=== PATIENT | female | born 1940 | race African-American/Black ===

== ENCOUNTER 2018-01-09 12:45 | Inpatient (IN) ==
[2018-01-09 14:01] LABS: Basophils % 0.8 % (0.0-0.8); Eosinophils % 0.6 % (0.00-10.9); Hematocrit 29.5 VOL% (35.7-47.0); Hemoglobin 8.9 GM/DL (12.0-16.0); Immature Granulocytes % 0.6 %; Immature Granulocytes Absolute 0.03 #; Lymphocytes # 0.9 10*3/uL (1.4-4.0); Lymphocytes % 17.1 % (21.3-54.2); Mean Corpuscular HGB Conc 30.2 GM/DL (32-36); Mean Corpuscular Hemoglobin 26 PG (27-34); Mean Corpuscular Volume 87.5 FL (87-102); Mean Platelet Volume 8.7 FL (9.6-12.0); Monocytes # 0.6 10*3/uL (0.11-0.8); Monocytes % 11.3 % (1.7-12.7); Neutrophils # 3.6 10*3/uL (1.4-7.4); Neutrophils % 69.6 % (38.7-73.9); Platelet Count 329 T/CUMM (130-400); Red Blood Count 3.37 MC/CUMM (3.8-5.5); Red Cell Distribution Width 17.6 % (9.3-17.3); White Blood Count 5.2 T/CUMM (4-12)
[2018-01-09 14:11] LABS: INR 1.2; PT Patient Result 12.2 SECS
[2018-01-09 14:21] LABS: Albumin 2.9 G/DL (3.4-5.0); Calcium 8.6 MG/DL (8.5-10.1); Osmolality,Calculated 279.4 MOS/KG (273-304); Potassium 3.3 MMOL/L (3.5-5.1); Total Protein 8.4 G/DL (6.4-8.3)
[2018-01-09 14:22] LABS: Troponin I Only 0.166 NG/ML (0.00-0.045)
[2018-01-09 14:47] LABS: Apearance,Urine CLEAR (Clear); Bacteria,Urine Occasional /HPF (Few); Bilirubin,Urine Negative (Negative); Blood, Urine Negative (Negative); Glucose,Urine (UA) Negative (Negative); Ketones,Urine Negative (Negative); Mucus,Urine Occasional /LPF (Occasional); Nitrite,Urine Negative (Negative); Protein,Urine Negative; Urine Color Straw (Yellow); Urine Specific Gravity 1.005 (1.001-1.035); Urine Urobilinogen < 2.0 EU/DL (0.2-1.0); WBC,Urine <1 /HPF (0-6)
[2018-01-09] MEDS ORDERED: ACETAMINOPHEN 325 MG TABLET PO PRN (16:02)
[2018-01-09] MEDS ORDERED: ONDANSETRON 4 MG/2 ML VIAL IV PRN (16:02)
[2018-01-09] MEDS ORDERED: ENOXAPARIN 40 MG/0.4 ML SYRINGE ONE (17:18)
[2018-01-09] MEDS: ENOXAPARIN 40 MG/0.4 ML SYRINGE SUBCUT SCH (17:21)
[2018-01-09] MEDS: SODIUM CHLORIDE 0.9% 1,000 ML IV SCH (18:35)
[2018-01-09] MEDS: ATORVASTATIN 40 MG TABLET PO SCH (21:10)
[2018-01-10 05:27] LABS: Basophils % 0.4 % (0.0-0.8); Eosinophils % 0.2 % (0.00-10.9); Hematocrit 27.1 VOL% (35.7-47.0); Hemoglobin 8.1 GM/DL (12.0-16.0); Immature Granulocytes % 0.4 %; Immature Granulocytes Absolute 0.04 #; Lymphocytes # 0.8 10*3/uL (1.4-4.0); Mean Corpuscular HGB Conc 29.9 GM/DL (32-36); Mean Corpuscular Hemoglobin 26 PG (27-34); Mean Corpuscular Volume 87.7 FL (87-102); Monocytes # 0.9 10*3/uL (0.11-0.8); Monocytes % 10.2 % (1.7-12.7); Neutrophils # 7.2 10*3/uL (1.4-7.4); Neutrophils % 79.8 % (38.7-73.9); Platelet Count 296 T/CUMM (130-400); Red Blood Count 3.09 MC/CUMM (3.8-5.5); Red Cell Distribution Width 17.7 % (9.3-17.3)
[2018-01-10 06:04] LABS: Albumin 2.5 G/DL (3.4-5.0); Total Protein 6.6 G/DL (6.4-8.3)
[2018-01-10 06:05] LABS: Osmolality,Calculated 284.8 MOS/KG (273-304); Potassium 3.2 MMOL/L (3.5-5.1); Thyroid Stimulating Hormone 2.75 uIU/ml (0.358-3.74)
[2018-01-10] MEDS ORDERED: PANTOPRAZOLE 40 MG TABLET PO SCH (09:00)
[2018-01-10] MEDS: amLODIPine 10 MG TABLET PO SCH (09:01)
[2018-01-10] MEDS: PANTOPRAZOLE 40 MG TABLET PO SCH (09:02)
[2018-01-10] MEDS: POTASSIUM CHLORIDE 20 MEQ TABLET PO PRN ×4 (10:30→20:15)
[2018-01-10] MEDS: ENOXAPARIN 40 MG/0.4 ML SYRINGE SUBCUT SCH (16:37)
[2018-01-10] MEDS: SODIUM CHLORIDE 0.9% 1,000 ML IV SCH (16:38)
[2018-01-10] MEDS: ATORVASTATIN 40 MG TABLET PO SCH (20:15)
[2018-01-11] MEDS: amLODIPine 10 MG TABLET PO SCH (09:11)
[2018-01-11] MEDS: PANTOPRAZOLE 40 MG TABLET PO SCH (09:11)
[2018-01-11] MEDS: SODIUM CHLORIDE 0.9% 1,000 ML IV SCH (09:12)
[2018-01-11] MEDS ORDERED: POTASSIUM CHLORIDE 20 MEQ TABLET PO ONE (09:19)
[2018-01-11] MEDS: ASPIRIN EC 81 MG TABLET PO SCH (09:44)
[2018-01-11] MEDS: ENOXAPARIN 40 MG/0.4 ML SYRINGE SUBCUT SCH (17:07)
[2018-01-11 17:16] LABS: Calcium 8.1 MG/DL (8.5-10.1); Osmolality,Calculated 281.3 MOS/KG (273-304); Potassium 4.8 MMOL/L (3.5-5.1)
[2018-01-11] MEDS: ATORVASTATIN 40 MG TABLET PO SCH (20:37)
[2018-01-12 04:43] LABS: Basophils # 0.1 10*3/uL (0.0-0.2); Basophils % 0.8 % (0.0-0.8); Eosinophils % 0.1 % (0.00-10.9); Hematocrit 25.7 VOL% (35.7-47.0); Hemoglobin 7.9 GM/DL (12.0-16.0); Immature Granulocytes % 0.4 %; Immature Granulocytes Absolute 0.03 #; Lymphocytes # 1.1 10*3/uL (1.4-4.0); Lymphocytes % 14.8 % (21.3-54.2); Mean Corpuscular HGB Conc 30.7 GM/DL (32-36); Mean Corpuscular Hemoglobin 27 PG (27-34); Mean Corpuscular Volume 87.1 FL (87-102); Monocytes # 0.7 10*3/uL (0.11-0.8); Monocytes % 9.5 % (1.7-12.7); Neutrophils # 5.8 10*3/uL (1.4-7.4); Neutrophils % 74.4 % (38.7-73.9); Platelet Count 262 T/CUMM (130-400); Red Blood Count 2.95 MC/CUMM (3.8-5.5); Red Cell Distribution Width 17.8 % (9.3-17.3); White Blood Count 7.7 T/CUMM (4-12)
[2018-01-12 04:52] LABS: INR 1.2; PT Patient Result 12.2 SECS
[2018-01-12] MEDS ORDERED: ceFAZolin 1,000 MG in SYRINGE 1 EACH IV ONE (06:30)
[2018-01-12] MEDS ORDERED: ceFAZolin 1,000 MG VIAL IRRIG ONE (06:30)
[2018-01-12] MEDS: SODIUM CHLORIDE 0.9% 1,000 ML IV SCH (08:50)
[2018-01-12] MEDS: amLODIPine 10 MG TABLET PO SCH (08:51)
[2018-01-12] MEDS: PANTOPRAZOLE 40 MG TABLET PO SCH (08:51)
[2018-01-12] MEDS: ASPIRIN EC 81 MG TABLET PO SCH (08:52)
[2018-01-12] MEDS ORDERED: HYDROmorphone 2 MG/1 ML VIAL ONE (11:57)
[2018-01-12] MEDS ORDERED: LIDOCAINE 1% 20 ML VIAL ONE (11:58)
[2018-01-12] MEDS ORDERED: MIDAZOLAM 2 MG/2 ML VIAL ONE (11:58)
[2018-01-12] MEDS ORDERED: TISSUE ADHESIVE 1 EACH APPLICATOR TOP ONE (12:45)
[2018-01-12] MEDS: ENOXAPARIN 40 MG/0.4 ML SYRINGE SUBCUT SCH (15:36)
[2018-01-12] MEDS: ATORVASTATIN 40 MG TABLET PO SCH (20:24)
[2018-01-13 05:08] LABS: Basophils # 0.1 10*3/uL (0.0-0.2); Basophils % 0.8 % (0.0-0.8); Eosinophils # 0.1 10*3/uL (0.0-0.87); Eosinophils % 0.9 % (0.00-10.9); Immature Granulocytes % 0.5 %; Immature Granulocytes Absolute 0.03 #; Lymphocytes # 0.9 10*3/uL (1.4-4.0); Lymphocytes % 14.2 % (21.3-54.2); Mean Corpuscular HGB Conc 30.8 GM/DL (32-36); Mean Corpuscular Hemoglobin 27 PG (27-34); Mean Corpuscular Volume 87.8 FL (87-102); Mean Platelet Volume 9.7 FL (9.6-12.0); Monocytes # 0.7 10*3/uL (0.11-0.8); Monocytes % 10.3 % (1.7-12.7); Neutrophils # 4.7 10*3/uL (1.4-7.4); Neutrophils % 73.3 % (38.7-73.9); Platelet Count 253 T/CUMM (130-400); Red Blood Count 2.96 MC/CUMM (3.8-5.5); Red Cell Distribution Width 17.6 % (9.3-17.3); White Blood Count 6.4 T/CUMM (4-12)
[2018-01-13 05:27] LABS: Potassium 4.3 MMOL/L (3.5-5.1)
[2018-01-13 05:44] LABS: ABG HCO3 21.8 MMOL/L (20-26); ABG Oxygen Saturation 92.2 % (95-100); ABG PCO2 36.3 MM HG (35-48); ABG PH 7.383 (7.35-7.45); ABG PO2 68.3 MM HG (80-95); Allen Test Positive
[2018-01-13] MEDS: ASPIRIN EC 81 MG TABLET PO SCH (08:53)
[2018-01-13] MEDS: PANTOPRAZOLE 40 MG TABLET PO SCH (08:53)
[2018-01-13] MEDS: amLODIPine 10 MG TABLET PO SCH (08:53)
[2018-01-13] MEDS: ENOXAPARIN 40 MG/0.4 ML SYRINGE SUBCUT SCH (18:16)
[2018-01-13] MEDS: SODIUM CHLORIDE 0.9% 1,000 ML IV SCH ×2 (19:38→21:23)
[2018-01-13] MEDS: ATORVASTATIN 40 MG TABLET PO SCH (21:07)
[2018-01-14] MEDS: SODIUM CHLORIDE 0.9% 1,000 ML IV SCH (04:11)
[2018-01-14 08:13] VITALS: BP 134/69
[2018-01-14] MEDS: ASPIRIN EC 81 MG TABLET PO SCH (08:55)
[2018-01-14] MEDS: amLODIPine 10 MG TABLET PO SCH (08:55)
[2018-01-14] MEDS: PANTOPRAZOLE 40 MG TABLET PO SCH (08:55)
== END 2018-01-14 13:38 | DRG 242 ==
LOC: N.ED 12:45 → N.EDINP 15:30 → SUATTDRO 15:30 → N.TELES 17:13
PROVIDERS: ATTEND Internal Medicine